=== PATIENT | female | born 1985 | race Caucasian/White ===

== ENCOUNTER 2019-07-19 10:05 | Outpatient (RCR) | payer OTHER, SELFPAY ==
[2019-07-19] MEDS: RHO(D) IMMUNE GLOBULIN 300 MCG SYRINGE IM (11:59)
== END 2019-08-14 09:23 | disposition home or self-care (01) ==
LOC: ANHOBOP 10:05
PROVIDERS: Visit Provider Obstetrics & Gynecology
DX: Z29.13 Encounter for prophylactic Rho(D) immune globulin (principal); O36.0990 Maternal care for other rhesus isoimmunization, unspecified trimester, not applicable or unspecified; Z3A.00 Weeks of gestation of pregnancy not specified
CPT/HCPCS: 90384; 96372; J2790

== ENCOUNTER 2020-05-20 09:58 | Emergency (ER) | payer OTHER, SELFPAY ==
--- NOTE | 2020-05-20 10:01 | ED.URI ---
HPI - URI/Sore Throat General Chief Complaint: Upper Respiratory Infection Stated Complaint: sore throat/congestion Time Seen by Provider: 05/20/20 10:01 Source: patient and RN notes reviewed History of Present Illness HPI Narrative: Patient is a 34-year-old female who presents the urgent care with complaints of sore throat and congestion. Patient states she is also had an increase in sneezing. States her son started day[place] and she noticed her symptoms have started since taking him to daycare. Patient states that she has noticed an increase in symptoms in the last 2 days. Denies any fever, nausea, vomiting. States that she has been using Chloraseptic spray. No other acute complaints. No acute distress noted. Patient aware of the plan of care. Some parts of this dictation were generated by voice recognition software and may contain typographical and/or grammatical inaccuracies. Related Data Home Medications Medication Instructions Recorded Confirmed diltiazem HCl 240 mg PO DAILY 05/20/20 05/20/20 hydrochlorothiazide 25 mg PO DAILY 05/20/20 05/20/20 Allergies Allergy/AdvReac Type Severity Reaction Status Date / Time hydrocodone Allergy Intermediate Rash Verified 05/20/20 10:16 ethinyl estradiol Allergy Mild Rash Verified 05/20/20 10:17 [From [facility]] norelgestromin Allergy Mild Rash Verified 05/20/20 10:17 [From [facility]o [facility]] verapamil Allergy Mild Rash Verified 05/20/20 10:17 Review of Systems Review of Systems: Narrative: CONSTITUTIONAL: Denies fever, chills, or sweats. EYES: Denies visual changes, redness, or discharge. ENT: Reports of postnasal drainage, sore throat and congestion CARDIOVASCULAR: Denies chest pain, palpitations, or edema. RESPIRATORY: Denies cough or dyspnea. GASTROINTESTINAL: Denies abdominal pain, nausea, vomiting, or diarrhea. GENITOURINARY: Denies dysuria or hematuria. SKIN: Denies rash or itching. MUSCULOSKELETAL: Denies back pain, joint pain, or myalgia. NEUROLOGIC: Denies headache, numbness, or weakness. All other systems reviewed are negative, except as documented in HPI. [facility] Past Medical History Medical History (Updated 05/20/20 @ 10:34 by MITRA Dennis) Arrhythmia requiring replacement of cardiac pacemaker placed 2017 for episodes of SVT Ectopic Gestational diabetes Hypertension Pain during labor VSD (ventricular septal defect) Family History Family History (Updated 06/30/19 @ 12:33 by Aaron Felix RN) Mother Hypertension Sibling Hypertension Father Hypertension Social History Social History Smoking status: Never smoker Alcohol intake: current Substance use: never Spiritual care concerns: No Comments At the time of my signature, I reviewed and agree with the nursing past medical, surgical, social, and family history. There is no relevant family history pertinent to the patient complaint. Exam Narrative: Exam Narrative: GENERAL: This is a well-nourished, well-developed patient, in no apparent distress. HEAD: normocephalic, atraumatic. EYES: PERRL. Sclera clear/white. Vision is grossly intact. EARS: External ears normal, auditory canals clear and without drainage, TMs normal without perforation. Hearing grossly intact. NOSE: External nose normal with no obvious nasal discharge, nares without redness, no rhinorrhea. THROAT: Mucous membranes moist, moderate erythema noted to posterior oropharynx without exudate or ulceration. Mild postnasal drainage. NECK: Neck supple CARDIOVASCULAR: Regular rate and rhythm without murmurs, gallops, or rubs. RESPIRATORY: Clear to auscultation. Breath sounds equal bilaterally. No wheezes, rales, or rhonchi. SKIN: warm, intact with no suspicious lesions or rash, good texture and turgor. NEURO: awake, alert, and oriented to person, place and time. There were no obvious focal neurologic abnormalities. EXTREMITIES: No clubbing, cyanosis, or ed
[2020-05-20 10:09] VITALS: BP 126/85; PULSE 80; RESP 20; TEMP 36.6; O2SAT 100
== END 2020-05-20 10:35 | disposition home or self-care (01) ==
PROVIDERS: Emergency Provider Nurse Practitioner Family; PCP Physician Assistant
DX: J02.9 Acute pharyngitis, unspecified (principal); Z95.0 Presence of cardiac pacemaker; I10 Essential (primary) hypertension
CPT/HCPCS: 87081; 87880; 99213; G0463

== ENCOUNTER → 2020-11-13 01:11 | Outpatient (CLI) | payer OTHER, SELFPAY ==
[2020-11-13 18:53] LABS: SARS-CoV-2 RNA PCR Negative
== END ==
PROVIDERS: PCP Physician Assistant; Visit Provider Internal Medicine Gastroenterology
DX: Z01.812 Encounter for preprocedural laboratory examination (principal); Z20.822 Contact with and (suspected) exposure to COVID-19
CPT/HCPCS: C9803; U0003; U0005

== ENCOUNTER 2020-11-16 01:04 | Day surgery (SDC) | payer OTHER, SELFPAY ==
[2020-11-02 14:34] VITALS: BMI 24.2
[2020-11-16] MEDS: LACTATED RINGERS 1,000 ML 150 ML IV CONT (06:46)
[2020-11-16 06:50] VITALS: BP 118/85; PULSE 80; RESP 18; TEMP 36.4; O2SAT 99; BMI 23.1
--- NOTE | 2020-11-16 07:12 | P.PNAN_ITS ---
Anes - Initial Pre Proc Eval Procedure: Operation Date: 11/16/20 07:30 Proposed Procedures p Colonoscopy - John Stovall MD Date/Time: 11/16/20 07:12 Surgeon: John Stovall MD Pre Op Diagnosis: constipation Patient Data Age: 34 Gender: F Height: 5 ft 5 in Weight: 63 kg Last Vital Signs Temp 97.6 F 11/16/20 06:50 Pulse 80 11/16/20 06:50 Resp 18 11/16/20 06:50 BP 118/85 11/16/20 06:50 Pulse Ox 99 11/16/20 06:50 Allergies Allergy/AdvReac Type Severity Reaction Status Date / Time hydrocodone Allergy Intermediate Rash Verified 11/16/20 06:48 ethinyl estradiol Allergy Mild Rash Verified 11/16/20 06:48 [From [facility]o [facility]] norelgestromin Allergy Mild Rash Verified 11/16/20 06:48 [From Ortho [facility]ra] verapamil Allergy Mild Rash Verified 11/16/20 06:48 Home Medications Medication Instructions Recorded Confirmed Type diltiazem HCl 240 mg PO DAILY 05/20/20 11/16/20 History hydrochlorothiazide 25 mg PO DAILY 05/20/20 11/16/20 History Patient hx anesthesia problems: none Family hx anesthesia problems: none [facility] Past Medical History Medical History (Updated 05/21/20 @ 00:00 by Best Arias) Arrhythmia requiring replacement of cardiac pacemaker placed 2017 for episodes of SVT Ectopic Gestational diabetes Hypertension Pain during labor VSD (ventricular septal defect) Family History Family History (Updated 06/30/19 @ 12:33 by Aaron Felix RN) Mother Hypertension Sibling Hypertension Father Hypertension Social History Social History Smoking status: Never smoker Alcohol intake: never Substance use: never Substance use type: does not use Living arrangements: with family Spiritual care concerns: No Anes - Eval Final PreProcedure Day of Procedure 11/16/20 07:12 Patient weight: normal Heart: regular rate and rhythm Lungs: clear to auscultation Airway: Mallampati scale class II Neurological: alert and oriented Last oral intake: >/= 8 hours ASA classification: III Emergent: no Anesthetic plan: proceed Anesthesia type and monitoring: general GIVS and standard monitoring Informed Consent: The patient's anesthetic plan and its attendant risks and benefits were discussed with the patient/family/POA. Questions were solicited and answers provided to the satisfaction of the patient/family/POA.
--- NOTE | 2020-11-16 07:17 | PM.HPGS ---
History of Present Illness History of Present Illness Consent: Risks, benefits, and alternatives have been discussed and questions answered. Patient agrees to proceed with procedure. Chief complaint: constipation Narrative: Gypsy Carter is a 34 year old female with a sudden change in bowel habits. She started a meat list diet a few months ago and has noticed that despite eating more vegetables she is constipated. Her stools tend to be hard, scyballous at times. She has a strong family history of colon cancer. Her father's father and her father's sister had colon cancer as did 1 grandparent. Review of Systems Review of Systems: All systems reviewed & are unremarkable except as noted in HPI and below PMFSH Past Medical History Medical History Arrhythmia requiring replacement of cardiac pacemaker placed 2017 for episodes of SVT Ectopic Gestational diabetes Hypertension Pain during labor VSD (ventricular septal defect) Family History Family History Mother Hypertension Sibling Hypertension Father Hypertension Social History Social History Smoking status: Never smoker Alcohol intake: never Substance use: never Substance use type: does not use Living arrangements: with family Spiritual care concerns: No Meds Home Medications and Allergies Home Medications Medication Instructions Recorded Confirmed Type diltiazem HCl 240 mg PO DAILY 05/20/20 11/16/20 History hydrochlorothiazide 25 mg PO DAILY 05/20/20 11/16/20 History Allergies Allergy/AdvReac Type Severity Reaction Status Date / Time hydrocodone Allergy Intermediate Rash Verified 11/16/20 06:48 ethinyl estradiol Allergy Mild Rash Verified 11/16/20 06:48 [From Ortho [facility]] norelgestromin Allergy Mild Rash Verified 11/16/20 06:48 [From Ortho Evra] verapamil Allergy Mild Rash Verified 11/16/20 06:48 Vital Signs Vital Signs - 24 hr 11/16/20 06:50 Temperature 36.4 C Pulse Rate 80 Respiratory Rate 18 Blood Pressure 118/85 Pulse Oximetry 99 Exam Const: General: alert Orientation/consciousness: patient oriented x3 Resp: Auscultation: clear to auscultation bilaterally Cardio: Rhythm: regular rhythm GI: GI Palp: Yes Soft to palpation and No Tenderness to palpation present (GI) Neuro: General: patient oriented x3 Assessment and Plan Assessment and plan (1) Change in bowel habits: Code(s): R19.4 - Change in bowel habit Status: Acute Assessment and Plan: Colonoscopy with possible biopsy or polypectomy or cautery or injection of substances.
[2020-11-16 08:00] VITALS: BP 92/55; PULSE 71; RESP 20; O2SAT 97
[2020-11-16 08:10] VITALS: BP 94/60; PULSE 69; RESP 20; O2SAT 97
[2020-11-16 08:20] VITALS: BP 106/66; PULSE 61; RESP 18; O2SAT 98
== END 2020-11-16 08:47 | disposition home or self-care (01) ==
PROVIDERS: PCP Physician Assistant; Visit Provider Internal Medicine Gastroenterology
PROC: 0DJD8ZZ Inspection of Lower Intestinal Tract, Via Natural or Artificial Opening Endoscopic (ICD-10-PCS; CPT 45378; principal; 2020-11-16 07:30)
DX: K59.00 Constipation, unspecified (principal); I10 Essential (primary) hypertension; Q21.0 Ventricular septal defect; Z95.0 Presence of cardiac pacemaker
CPT/HCPCS: 45378; C9803; J2001; J2704; J7120; U0003; U0005

== ENCOUNTER 2021-10-10 08:02 | Emergency (ER) | payer BC, SELFPAY ==
[2021-10-10 08:09] VITALS: BP 157/104; PULSE 86; RESP 20; TEMP 36.5; O2SAT 100
--- NOTE | 2021-10-10 08:09 | ED.URI ---
HPI - URI/Sore Throat General Chief Complaint: Upper Respiratory Infection Stated Complaint: Ear Pain Time Seen by Provider: 10/10/21 08:10 Source: patient Mode of arrival: ambulatory Limitations: no limitations History of Present Illness HPI Narrative: Ms. Gomez is a 35-year-old female patient presenting to the clinic today with complaints of ear pain x 3 days. She reports her son has been sick with an upper respiratory infection and she thinks she got sick from him. She was diagnosed with laryngitis a couple days ago. Complains of right ear pain that actually started this morning. Also reports some postnasal drip. MD elicited complaint: sore throat and nasal congestion Related Data Allergies Allergy/AdvReac Type Severity Reaction Status Date / Time hydrocodone Allergy Intermediate Rash Verified 10/10/21 08:16 ethinyl estradiol Allergy Mild Rash Verified 10/10/21 08:16 [From Ortho [facility]ra] norelgestromin Allergy Mild Rash Verified 10/10/21 08:16 [From Ortho Evra] verapamil Allergy Mild Rash Verified 10/10/21 08:16 Review of Systems Review of Systems: Pertinent positives per HPI. Patient denies any fever, chills, rash, headache, visual changes, dizziness, cough, shortness of breath, chest pain, palpitations, nausea, vomiting, diarrhea, constipation, abdominal pain, or any urinary issues. [facility] Past Medical History Medical History Arrhythmia requiring replacement of cardiac pacemaker placed 2017 for episodes of SVT Ectopic Gestational diabetes Hypertension Pain during labor VSD (ventricular septal defect) Family History Family History Mother Hypertension Sibling Hypertension Father Hypertension Social History Social History Smoking status: Never smoker Alcohol intake: never Substance use: never Substance use type: does not use Spiritual care concerns: No Exam Narrative: General: Well-developed, well nourished, in no apparent distress Head: Normocephalic, atraumatic Eyes: Pupils equally round and reactive to light bilaterally, EOM intact, sclera and conjunctive clear, no discharge, lids normal Ears: Left TMs intact and dull, right TM intact and dull with mild bulging, right ear canal swollen with mild white exudate. Tenderness to palpation of the right tragus and pulling of the pinna. Grossly hearing normal Nose: Nares patent, clear nasal discharge, mild inflammation, no sinus tenderness. Mouth: Oropharynx without lesions or masses, good dentition, MMM. Postnasal drip Neck: Supple, trachea midline, no enlargement of anterior or posterior cervical nodes, no thyroid masses or goiter palpable. Cardio: Regular rate and rhythm, s1 and s2 normal, no murmur appreciated. Resp: Clear to auscultation bilaterally anteriorly and posteriorly, no rhonchi, rales, wheezing or rubs Course Course Level of Care: Express Care Visit Vital Signs Vital signs: Vital signs reviewed MDM - URI/Sore Throat Differential Diagnosis Differential diagnosis: Likely otitis media, sinusitis, viral infection and pharyngitis Medical Records Medical records narrative: Portions of this record was documented using voice software. Discharge Plan Discharge Clinical Impression: URI (upper respiratory infection) Qualifiers: URI type: unspecified viral URI Qualified Code(s): J06.9 - Acute upper respiratory infection, unspecified Otitis externa Qualifiers: Chronicity: acute Laterality: right ETD (eustachian tube dysfunction) Qualifiers: Laterality: right Qualified Code(s): H69.81 - Other specified disorders of Eustachian tube, right ear Patient Disposition: Home, Self-Care Condition: Stable Instructions: Antibiotic Form, Earache (ED), Cold Symptoms (ED) Additional Instructions: Take prescription medications on
[2021-10-10 08:20] VITALS: BP 157/104; PULSE 86; RESP 20; TEMP 36.5; O2SAT 100
== END 2021-10-10 08:35 | disposition home or self-care (01) ==
PROVIDERS: Emergency Provider Nurse Practitioner Family; PCP Physician Assistant
DX: J06.9 Acute upper respiratory infection, unspecified (principal); H60.91 Unspecified otitis externa, right ear; H69.81 Other specified disorders of Eustachian tube, right ear; Z95.0 Presence of cardiac pacemaker; I10 Essential (primary) hypertension; Q21.0 Ventricular septal defect
CPT/HCPCS: 99213; G0463

== ENCOUNTER 2021-12-16 21:04 | Emergency (ER) | payer BC, SELFPAY ==
[2021-12-16 21:07] VITALS: BP 171/102; PULSE 73; RESP 16; TEMP 36.3; O2SAT 99
== END 2021-12-17 04:18 | disposition left against medical advice (07) ==
LOC: ANHED 22:22
PROVIDERS: PCP Physician Assistant
DX: I10 Essential (primary) hypertension (principal)
CPT/HCPCS: 99199

== ENCOUNTER 2021-12-17 11:52 | Emergency (ER) | payer BC, SELFPAY ==
[2021-12-17] VITALS (14 sets, daily range): BP systolic 132–161; BP diastolic 94–114; PULSE 72–102; RESP 11–23; TEMP 36.3; O2SAT 91–100
--- NOTE | ~2021-12-17 | XR_ITS ---
XR chest 2V DATE: 12/17/2021 12:30 INDICATION: Hypertension. TECHNIQUE: PA and lateral views COMPARISON: None FINDINGS: Left-sided pacemaker device with leads overlying right atrium and right ventricle. Normal h eart size. No hilar or mediastinal enlargement. No pulmonary infiltrate or consolidation, pleural eff usion or pulmonary vascular congestion or pneumothorax. Included skeletal structures are unremarkable other than mild thoracic and lumbar scoliosis. IMPRESSION: Left dual-lead pacemaker No active cardiopulmonary disease Reviewed, dictated and finalized at location A.
--- NOTE | 2021-12-17 12:21 | ECG_ITS ---
Measurements Intervals Nunda Rate: 79 P: 69 NJ: 113 QRS: 75 QRSD: 91 T: -11 QT: 365 QTc: 419 Interpretive Statements SINUS RHYTHM WITH SHORT [place] INTERVAL DELAYED PRECORDIAL R/S TRANSITION BORDERLINE ST-T WAVE ABNORMALITY- INF/LAT LEADS BASELINE ARTIFACT- V5 BORDERLINE ECG Electronically Signed On 12-17-2021 15:09:45 CDT by Skinny Asif D.O.
[2021-12-17] MEDS: KETOROLAC 30 MG/ML VIAL (*BKC) IV PUSH (12:41)
[2021-12-17 12:46] LABS: Basophils Absolute Auto 0.1 K/mm3 (0.0-0.1); Basophils Percent Auto 0.7 % (0.2-1.2); Eosinophils Absolute Auto 0.1 K/mm3 (0-0.3); Hematocrit 44.9 % (37.0-47.0); Hemoglobin 15.5 g/dL (12.0-15.0); Immature Granulocyte Absolute 0.02 K/mm3 (0.00-0.031); Immature Granulocyte Percent A 0.3 % (0-0.5); Lymphocytes Absolute Auto 2.19 K/mm3 (0.9-3.2); Mean Corpuscular HGB Conc 34.5 g/dl (32-36); Mean Corpuscular Volume 86.8 fl (80-100); Mean Platelet Volume 11.5 fl (7.4-10.4); Monocytes Absolute Auto 0.5 K/mm3 (0.1-0.6); Monocytes Percent Auto 6.4 % (2.6-8.5); Neutrophils Absolute Auto 4.2 K/mm3 (1.3-6.7); Neutrophils Percent Auto 59.6 % (45.5-73.1); Platelet Count Result 239 k/mm3 (150-375); Red Blood Count 5.17 M/mm3 (4.2-5.4); Red Cell Distribution Width 12.5 % (11.5-14.5); White Blood Count 7.1 K/mm3 (4.5-10.0)
[2021-12-17 12:58] LABS: Anion Gap 8 mmol/L (8-16); Blood Urea Nitrogen 12 mg/dL (7-17); Calcium 9.6 mg/dL (8.4-10.2); Carbon Dioxide 29 mmol/L (22-30); Chloride 101 mmol/L (98-107); Estimated CRCL calculation 68 ml/min; Estimated Glomerular Filt Rate > 60; Glucose 98 mg/dL (65-110); Magnesium 1.9 mg/dL (1.6-2.3); Sodium 138 mmol/L (137-145)
[2021-12-17 13:09] LABS: Troponin I < 0.012 ng/mL (0.000-0.034)
[2021-12-17 13:15] LABS: D Dimer < 0.27 ug/mL (<0.48)
--- NOTE | 2021-12-17 13:27 | PC.NURSE ---
Resting on cart playing on cell phone. Reports her headache is getting worse.
--- NOTE | 2021-12-17 13:40 | ED.RECABL ---
HPI - Recheck/Abnormal Lab/Rx General Chief Complaint: Recheck/Abnormal Lab/Rx Stated Complaint: high bp Time Seen by Provider: 12/17/21 11:59 History of Present Illness HPI narrative: Patient is a 35-year-old female who presents ER with concerns for elevated blood pressures. She takes her blood pressure weekly because she has not been on antihypertensives for 2 years. She noticed it going up this week and each day she has noticed that her diastolic is been around 100 and her systolic blood pressure has been 140s to 160s. She called her bridge instructor who started on hydrochlorothiazide 5 mg. She has taken 2 doses. She has noted that she has been having also aching headache and occasionally feels like there is a disturbance in her peripheral vision. She has had some chest tightness. She does have history of SVT and ventricular fibrillation. She has a AICD implanted. No history of coronary disease. Denies history of migraine. 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 She also reports that she has not been sleeping well this week. Related Data Home Medications Medication Instructions Recorded Confirmed hydrochlorothiazide 25 mg DAILY 12/17/21 Allergies Allergy/AdvReac Type Severity Reaction Status Date / Time hydrocodone Allergy Intermediate Rash Verified 12/17/21 12:03 ethinyl estradiol Allergy Mild Rash Verified 12/17/21 12:03 [From Ortho [facility]] norelgestromin Allergy Mild Rash Verified 12/17/21 12:03 [From Ortho Evra] verapamil Allergy Mild Rash Verified 12/17/21 12:03 Review of Systems Review of Systems: All systems reviewed & are unremarkable except as noted in HPI and below Constitutional: Constitutional: Denies chills, Denies fever(s) and Denies weakness Eyes: Eyes: Reports change in vision ENT: Denies nasal congestion and Denies sore throat Cardiovascular: Cardiovascular: Reports chest pain, Denies rapid heart rate and Denies radiating jaw, neck or arm pain Respiratory: Respiratory: Denies cough and Denies dyspnea Gastrointestinal: Gastrointestinal: Denies nausea and Denies vomiting Neurologic: Denies syncope, Reports headache(s), Denies focal weakness and Denies numbness PMFSH Past Medical History Medical History Arrhythmia requiring replacement of cardiac pacemaker placed 2017 for episodes of SVT Ectopic Gestational diabetes Hypertension Pain during labor VSD (ventricular septal defect) Family History Family History Mother Hypertension Sibling Hypertension Father Hypertension Social History Social History Smoking status: Never smoker Alcohol intake: never Substance use: never Substance use type: does not use Spiritual care concerns: No Exam Narrative: GENERAL: Well-appearing, well-nourished, and in no acute distress. HEAD: Normocephalic, atraumatic. EYES: PERRLA and EOMI. CHEST: Clear to auscultation. No respiratory distress. HEART: Regular rate and rhythm. Normal peripheral pulses. ABDOMEN: Soft, nontender, nondistended. EXTREMITIES: Normal range of motion. No edema. SKIN: Warm, dry, no rash. NEURO: Clear speech, no dysarthria. Moves all extremities without issue. Alert and oriented x3. PSYCH: Normal mood and affect. Course Course Emergency Course: Patient resting comfortably. Blood pressures been in the 130 systolic has been in the low 100s. Feels as though there is combination of stress and hypertension. This is not felt to be a CVA. No thunderclap headache. Recommend follow-up with PCP and bridge instructor. Continue home medication. Vital Signs Vital signs: Vital Signs Temperature 97.4 F L 12/17/21 11:54 Pulse Rate 72 12/17/21 11:54 Respiratory Rate 16 12/17/21 11:54 Blood Pressure 161/114 H
== END 2021-12-17 14:09 | disposition home or self-care (01) ==
PROVIDERS: Emergency Provider Emergency Medicine; PCP Physician Assistant
DX: I10 Essential (primary) hypertension (principal); R51.9 Headache, unspecified; Z95.810 Presence of automatic (implantable) cardiac defibrillator; R94.31 Abnormal electrocardiogram [ECG] [EKG]
CPT/HCPCS: 36415; 71046; 80048; 83735; 84484; 85025; 85380; 93005; 96374; 99284; J1885

== ENCOUNTER 2022-07-01 18:24 | Emergency (ER) | payer BC, SELFPAY ==
--- NOTE | ~2022-07-01 | XR_ITS ---
EXAMINATION: XR chest 1V portable Exam Date/Time: 07/01/2022 19:25 HOUSEKEEPING AID HISTORY: cough, sob, HX VSD, PACEMAKER INSERT 2017, EXPOSED TO RSV Comparison: 12/17/2021. RESULT: Lines, tubes, and devices: Left chest pacer/fibrillator, with intact leads. Lungs and pleura: Clear. Cardiomediastinal silhouette: Stable. Other: No acute osseous or upper abdominal finding. IMPRESSION: No acute cardiopulmonary process. Reviewed, dictated and finalized at location K. [employer]KEEPING AID
[2022-07-01 18:37] VITALS: BP 177/113; PULSE 93; RESP 17; TEMP 37; O2SAT 100
[2022-07-01 19:00] VITALS: BP 148/101
--- NOTE | 2022-07-01 19:11 | ED.URI ---
HPI - URI/Sore Throat General Chief Complaint: Upper Respiratory Infection Stated Complaint: URI Time Seen by Provider: 07/01/22 19:01 History of Present Illness HPI Narrative: Patient is a 36-year-old female with a history of hypertension, SVT status post ablation complicated by V. fib arrest, now with ICD in place presenting with upper respiratory symptoms. Patient states that her son had RSV last week. She states she is concerned he gave it to her. She has had cough, muscle aches, nasal congestion, sore throat, shortness of breath. She denies any chest pain or palpitations. No headache, numbness or weakness, abdominal pain, nausea or vomiting, diarrhea, dysuria, leg swelling. Related Data Home Medications Medication Instructions Recorded Confirmed hydrochlorothiazide 25 mg tablet 25 mg DAILY 12/17/21 Allergies Allergy/AdvReac Type Severity Reaction Status Date / Time hydrocodone Allergy Intermediate Rash Verified 12/17/21 12:03 ethinyl estradiol Allergy Mild Rash Verified 12/17/21 12:03 [From Ortho [facility]] norelgestromin Allergy Mild Rash Verified 12/17/21 12:03 [From Ortho [facility]ra] verapamil Allergy Mild Rash Verified 12/17/21 12:03 Review of Systems Review of Systems: All systems reviewed & are unremarkable except as noted in HPI and below PMFSH Past Medical History Medical History Arrhythmia requiring replacement of cardiac pacemaker placed 2017 for episodes of SVT Ectopic Gestational diabetes Hypertension Pain during labor VSD (ventricular septal defect) Family History Family History Mother Hypertension Sibling Hypertension Father Hypertension Social History Social History Smoking status: Never smoker Alcohol intake: never Substance use: never Substance use type: does not use Spiritual care concerns: No Exam Narrative: GENERAL: Well-appearing, well-nourished, and in no acute distress. HEAD: Normocephalic, atraumatic. EYES: PERRLA and EOMI. ENT: + Nasal congestion, no rhinorrhea or epistaxis. Mucous membranes moist. NECK: Supple. CHEST: Clear to auscultation. No respiratory distress. HEART: Regular rate and rhythm. No murmur heard. Normal peripheral pulses. ABDOMEN: Soft, nontender, nondistended, normal active bowel sounds. EXTREMITIES: Normal range of motion. No edema. SKIN: Warm, dry, no rash. NEURO: No focal deficits. Alert and oriented x3. PSYCH: Normal mood and affect. Course Vital Signs Vital signs: Vital Signs Temperature 98.6 F 07/01/22 18:37 Pulse Rate 93 07/01/22 18:37 Respiratory Rate 17 07/01/22 18:37 Blood Pressure 177/113 H 07/01/22 18:37 Pulse Oximetry 100 07/01/22 18:37 Temperature 98.6 F 07/01/22 18:37 Pulse Rate 93 07/01/22 18:37 Respiratory Rate 17 07/01/22 18:37 Blood Pressure 148/101 H 07/01/22 19:00 Pulse Oximetry 100 07/01/22 18:37 MDM - URI/Sore Throat MDM Narrative Medical decision making narrative: Patient is a 36-year-old female presenting with viral symptoms. Patient is hypertensive, otherwise vitals are within normal limits. Patient will follow up with her registration manager regarding this. Patient is positive for flu A. Blood work without significant abnormalities. Patient is negative for strep. Chest x-ray with no acute abnormalities. Patient reports feeling better after fluids and IV Toradol. Discussed appropriate supportive care. Recommended PCP follow-up. Appropriate return precautions given. Patient voiced understanding and is agreeable with plan. Discharged in stable condition. Lab Data Result diagrams: 07/01/22 19:41 07/01/22 19:41 Labs: Lab Results 07/01/22 07/01/22 07/01/22 Range/Units 19:40 19:41 19:41 WBC 3.8 L (4.5-10.0) K/mm3 RBC 4.45 (4.2-5.4) M
[2022-07-01] MEDS: SODIUM CHLORIDE 0.9% IV 1,000 ML 999 ML IV CONT (19:42)
[2022-07-01] MEDS: KETOROLAC 15 MG/ML VIAL (*BKC) IV PUSH (20:06)
[2022-07-01 20:19] LABS: Basophils Percent Auto 0.5 % (0.2-1.2); Eosinophils Percent Auto 1.1 % (0-4.4); Hematocrit 39.7 % (37.0-47.0); Hemoglobin 13.3 g/dL (12.0-15.0); Immature Granulocyte Absolute 0.01 K/mm3 (0.00-0.031); Immature Granulocyte Percent A 0.3 % (0-0.5); Lymphocytes Absolute Auto 0.77 K/mm3 (0.9-3.2); Lymphocytes Percent Auto 20.3 % (18.3-44.2); Mean Corpuscular HGB Conc 33.5 g/dl (32-36); Mean Corpuscular Hemoglobin 29.9 pg (26-34); Mean Corpuscular Volume 89.2 fl (80-100); Mean Platelet Volume 11.9 fl (7.4-10.4); Monocytes Absolute Auto 0.4 K/mm3 (0.1-0.6); Monocytes Percent Auto 10.8 % (2.6-8.5); Neutrophils Absolute Auto 2.6 K/mm3 (1.3-6.7); Platelet Count Result 195 k/mm3 (150-375); Red Blood Count 4.45 M/mm3 (4.2-5.4); Red Cell Distribution Width 12.6 % (11.5-14.5); White Blood Count 3.8 K/mm3 (4.5-10.0)
[2022-07-01 20:25] LABS: Alanine Aminotransferase 26 U/L (6-35); Albumin Level 4.6 g/dL (3.5-5.1); Alkaline Phosphatase 57 U/L (38-126); Anion Gap 10 mmol/L (8-16); Aspartate Amino Transferase 31 U/L (14-36); Bilirubin,Total 0.6 mg/dL (0.2-1.3); Blood Urea Nitrogen 5 mg/dL (7-17); Calcium 8.9 mg/dL (8.4-10.2); Carbon Dioxide 28 mmol/L (22-30); Chloride 101 mmol/L (98-107); Estimated CRCL calculation 84 ml/min; Estimated Glomerular Filt Rate > 60; Glucose 98 mg/dL (65-110); Potassium 4.1 mmol/L (3.4-5.0); Sodium 139 mmol/L (137-145)
[2022-07-01 20:50] LABS: Influenza A QL RT-PCR Positive (Negative); Influenza B QL RT-PCR Negative (Negative); RSV RNA, RT-PCR Negative (Negative); SARS-CoV-2 RNA PCR Negative
[2022-07-01 21:24] LABS: Strep Group A RT-PCR Not Detected (Negative)
== END 2022-07-01 21:55 | disposition home or self-care (01) ==
PROVIDERS: Emergency Provider Emergency Medicine; PCP Physician Assistant
DX: J10.1 Influenza due to other identified influenza virus with other respiratory manifestations (principal); Z20.822 Contact with and (suspected) exposure to COVID-19; I10 Essential (primary) hypertension; Z95.810 Presence of automatic (implantable) cardiac defibrillator
CPT/HCPCS: 36415; 71045; 80053; 85025; 87637; 87651; 96361; 96365; 96375; 99284; J0131; J1885; J7030